=== PATIENT | male | born 1935 | race Caucasian/White ===

== ENCOUNTER 2021-10-22 08:28 | Outpatient (CLI) | payer MEDICARE | END 2021-10-22 08:29 | disposition home or self-care (01) | LOC: TBSIIMAG 08:28 | PROVIDERS: ATTEND Surgery | DX: R20.0 Anesthesia of skin (principal); M25.559 Pain in unspecified hip; M47.816 Spondylosis without myelopathy or radiculopathy, lumbar region; Z98.890 Other specified postprocedural states; M48.061 Spinal stenosis, lumbar region without neurogenic claudication | CPT/HCPCS: 72120; 72148 ==